=== PATIENT | female | born 1970 | race African-American/Black ===

== ENCOUNTER → 2016-07-10 | Outpatient (CLI) | payer BC ==
[~2016-07-10] MED LIST: ACETAMINOPHEN PO; ACID CONTROL20 MG PO; ATARAX PO; BENZONATATE PO; CARAFATE1 G PO; FLEXERIL PO; FLEXERIL10 M1 PO; IBUPROFEN PO; IBUPROFEN800 MG PO; LEVAQUIN PO; LORCET 10/650 T1 TAB PO; PHENERGAN25 MG PO; PRAVACHOL PO; PROAIR HFA8.5 GM IH; TOPROL XL PO; ULTRAM PO; VOLTAREN75 MG PO; [UNRECOGNIZED DRUG - REMARK]
--- NOTE | ~2016-07-10 | MY11 ---
[facility] A Service of [facility] RADIOLOGY TEXT RESULTS PATIENT: ROBIN FUNES LOCATION: [facility] : 74 UNIT #: [id number] AGE: [address]: MARIO MARCUS MD SEX: F ORDER DR: [id number] [facility] [address] [place], [place] [address] [id number] O MR#: [id number] #: [id number] NAME: ROBIN FUNES : 1970 SEX: F STUDY DATE/TIME: 07/10/2016 10:36 UNIT: [facility] ROOM: STUDY DESCRIPTION: MY Mammogram Screening Dig Jose Luis Attending Physician: Mario Marcus M.D. Ordering Physician: Mario Marcus M.D. Primary Care Physician: Mario Marcus M.D. MEDICAL IMAGING REPORT This report is preliminary unless electronic signature is present EXAM Digital screening mammogram, 07/10/2016, [facility]. HISTORY 45-year-old woman. No risk elevation. Annual screen. COMPARISON Mammograms date to 09/04/2005 with most recent 01/14/2015. FINDINGS Digital imaging of each breast was completed utilizing screening protocol. Review includes FDA-approved CAD device. Overall increase in fibroglandular parenchyma bilaterally. This generally reflects hormonal response. There is no interval occurring breast mass. There are no suspicious microcalcifications and no architectural deformity. IMPRESSION Negative mammogram. Annual screening recommended. Patients over the age of 40 are entered into a reminder system with target due date for the next mammogram. A result letter will also be sent to the patient. BIRADS: 1 Negative. Dictated by... Han Tejeda M.D. THIS IS AN ELECTRONICALLY VERIFIED REPORT Han Tejeda M.D. at 07/10/2016 12:27 PM BEVERLEY/[email or web address] TD: 07/10/2016 11:50 JOB #: [id number] [facility] A Service of [facility] RADIOLOGY TEXT RESULTS PATIENT: ROBIN FUNES [id number] : 74 UNIT #: [id number] AGE: [address]: MARIO MARCUS MD SEX: F ORDER DR: MEDICAL IMAGING REPORT Page 1 of 1 COPY
== END | disposition home or self-care (01) ==
LOC: CWCC 09:58
DX: Z12.31 Encounter for screening mammogram for malignant neoplasm of breast (principal)
CPT/HCPCS: G0202